=== PATIENT | female | born 1945 | race Two or more races ===

== ENCOUNTER → 2021-08-17 16:35 | Outpatient (REF) | payer MEDICARE, BC, SELFPAY ==
--- NOTE | 2021-08-17 16:45 | CA_ITS ---
Transthoracic Echocardiogram Patient (Last, First, Middle): Kenya Dixon, Gender: Female Date of : 1945 Age: 76 Procedure Date: 08/17/2021 Procedure Type: Transthoracic Echocardiogram Location: [facility] Height: 154.94 cm Weight: 51.26 kg BSA: 1.48 m2 Heart Rate: bpm BP: 120 / 60 mmHg Jointer Machine Operator: JEANNIE Referring MD: Kellie Boyd MD Symptoms: CHEST PAIN Study Quality: Good ECG Rhythm: Sinus Conclusions: - The left ventricular systolic function is normal. The calculated ejection fraction is 62% by biplane method. - The left atrium is mildly dilated. - There is mild tricuspid valve regurgitation. Findings Left Ventricle Normal left ventricular cavity size. There is normal left ventricular wall thickness. The left ventricular systolic function is normal. The calculated ejection fraction is 62% by biplane method. There is no evidence of regional wall motion abnormalities. Diastolic function is normal for age. Right Ventricle Normal right ventricular cavity size and systolic function. Atria The left atrium is mildly dilated. The right atrium is normal in size. Aortic Valve There is a normal trileaflet aortic valve. There is no aortic valve stenosis. There is no aortic valve regurgitation. Mitral Valve There is mild mitral annular calcification. There is trace mitral valve regurgitation. There is no mitral valve stenosis. Pulmonic Valve The pulmonic valve is likely normal. Tricuspid Valve Normal tricuspid valve structure. There is mild tricuspid valve regurgitation. The right ventricular systolic pressure is normal. Great Vessels The aorta was not well visualized. The sinuses of valsalva is normal in size. Venous The inferior vena cava is normal in size and collapses greater than 50% with inspiration. Pericardium/Pleural There is no evidence of pericardial effusion. Prior Study Comparison Changes noted compared to prior study dated: 04/29/2018. increase in left atrial size. (prior echo from [facility]) Measurements 2D Linear Measurements IVSd: 0.95 0.6-0.9/0.6-1.0 cm LVIDd: 3.82 3.9-5.3/4.2-5.9 cm LVIDd Index: 2.58 2.4-3.2/2.2-3.1 cm/m2 LVIDs: 2.82 2.0-3.6 cm LVPWd: 0.86 0.7-1.1 cm LA Diam: 3.50 2.7-3.8/3.0-4.0 cm LAIDs Index: 2.36 1.5-2.3 cm/m2 LV Mass: 127.52 67-162/88-224 g LV Mass Index: 86.16 43-95/49-115 g/m2 LVOT Diam: 1.90 3.0+(-)1.3 cm 2D Systolic Function EF 4C: 61.30 >55% EF 2C: 61.80 >55% EF BiP: 62.10 >55% Mitral Valve MV Pk E: 0.71 MV PK A: 0.93 MV Decel Time: 273.00 E/A: 0.80 E'Lateral: 8.16 E'Medial: 5.87 E/E' Med: 12.10 E/E' Lat: 8.70 PHT: 80.00 MVA PHT: 2.75 Decel Yell: 2.61 Aortic Valve AoV Pk Jose: 1.32 AoV Mn Jose: 0.91 AoV VTI: 0.30 AoV Pk Grad: 7.00 Aov Mn Grad: 4.00 KIRSTIE Cont.VTI: 2.52 LVOT LVOT Pk Jose: 1.12 LVOT Mn Jose: 0.71 LVOT VTI: 0.27 LVOT Pk Grad: 5.00 LVOT Mn Grad: 2.00 LVOT Diam: 1.90 LVOT Area: 2.84 Diastolic Function MV Pk E: 0.71 MV Pk A: 0.93 E/A: 0.80 E'Medial: 5.87 E/E' Med: 12.10 E' Laterial: 8.16 E/E' Lat: 8.70 Right Ventricle TAPSE (mm): 20.00 TVS' Jose: 12.60 Tricuspid Valve TR Pk Jose: 2.36 TR Pk Grad: 22.00 RA Press: 3.00 RVSP: 25.00 Great Vessels Aorta Sinus of Valsalva: 3.34 2.0-3.5 cm Ao Asc: 3.30 2.1-3.4 cm Ao Arch: 2.30 Updated in Other Vendor System with Status of Final Ochoa Banerjee MD electronically signed on 08/19/2021 2:21:18 PM with status of Final
== END ==
LOC: HO.CARD 16:35
PROVIDERS: Visit Provider Internal Medicine
DX: R07.9 Chest pain, unspecified (principal)
CPT/HCPCS: 93306